=== PATIENT | female | born 1960 | race Caucasian/White ===

== ENCOUNTER 2017-06-14 21:01 | Emergency (ER) | payer SELFPAY ==
[~2017-06-14] VITALS: Ht 162.6 cm; Wt 71.7 kg
[2017-06-14 21:28] LABS: URINE SOURCE CLEAN CATCH
[2017-06-14 21:43] LABS: URINE APPEARANCE CLOUDY; URINE BILIRUBIN NEG (NEG); URINE BLOOD NEG (NEG); URINE COLOR DK YELLOW; URINE GLUCOSE NEG (NEG); URINE KETONE TRACE (NEG); URINE LEUKOCYTE ESTERASE 3+ (NEG); URINE NITRATE NEG (NEG); URINE PH 5.5 (5-8); URINE PROTEIN 1+ (NEG); URINE SPECIFIC GRAVITY 1.027 (1.003-1.035)
[2017-06-14 21:45] LABS: CULTURE INDICATED? YES; URINE BACTERIA AUWI 2+ (NEGATIVE); UWBCS1 AUWI INNUM (0-5)
[2017-06-14 21:58] LABS: URINE MUCUS PRESENT; URINE SQUAMOUS EPITHELIAL CELL MANY /[HPF]
== END 2017-06-14 22:11 | disposition home or self-care (01) ==
LOC: CFTX 21:01 → CED 21:01 → CFTX 21:47
PROVIDERS: Nurse Practitioner
DX: N39.0 Urinary tract infection, site not specified (principal)
CPT/HCPCS: 81003; 84703; 87086; 99283